=== PATIENT | female | born 1945 | race Caucasian/White ===

== ENCOUNTER 2025-07-18 04:38 | Emergency (ER) | payer OTHER ==
[2025-07-18 05:13] LABS: Absolute Lymphocytes (CBC) 3.1 K/uL (0.7-4.9); Hematocrit 40.6 % (36.0-45.0); Hemoglobin 13.9 g/dL (12.0-15.0); MCH 32.0 pg (27.0-35.0); MCHC 34.3 g/dL (32.0-36.0); MCV 93.3 fL (80-100); MPV 9.6 fL (7.6-11.3); Nucleated RBC Absolute Count 0.0 (0-0); Nucleated Red Blood Cells % 0.0 % (0-0); RBC Red Blood Cell Count 4.35 M/uL (3.86-4.86); White Blood Count 11.60 thou/uL (4.3-10.9)
[2025-07-18] MEDS ORDERED: IPRATROPIUM BROM 0.5MG/2.5ML ONE (05:34)
[2025-07-18] MEDS ORDERED: ALBUTEROL 2.5 MG/3 ML NEB SOL ONE ×2 (05:34→05:36)
[2025-07-18 05:40] LABS: Influenza A Ag Negative; Influenza B Ag Negative; SARS-CoV-2 Antigen Rapid Res Positive (Negative)
[2025-07-18 05:42] LABS: Anion Gap 9.9 mEq/L (5.0-15.0); BUN Blood Urea Nitrogen 11.0 mg/dL (7-18); Glucose Level 120.0 mg/dL (74-106); Potassium 3.9 mEq/L (3.5-5.1); Troponin High Sensitivity 8.6 pg/mL (<58.9)
--- NOTE | 2025-07-18 06:17 | ER ---
Nurse's Notes [facility] Name: Mariluz Villalta Age: 80 yrs Sex: Female : 1945 Arrival Date: 07/18/2025 Time: 04:38 Bed 6 Private MD: Diagnosis: COVID-19, viral illness Presentation: 07/18 04:52 Chief complaint: Patient states: PER FAMILY PT HAS BEEN C/O OF SOB, STUFFY NOSE AND HAS br2 HAD A PROD COUGH...PT DENIES PAIN. Coronavirus screen: Client denies travel out of the [place] in the last 14 days. Ebola Screen: Patient denies exposure to infectious person. Initial Sepsis Screen: Does the patient meet any 2 criteria? No. Patient's initial sepsis screen is negative. Does the patient have a suspected source of infection? No. Patient's initial sepsis screen is negative. Risk Assessment: Do you want to hurt yourself or someone else? Patient reports no desire to harm self or others. Onset of symptoms is unknown. 04:52 Method Of Arrival: Wheelchair br2 04:52 Acuity: JILLIAN 3 br2 Triage Assessment: 04:55 General: Appears in no apparent distress. uncomfortable, Behavior is cooperative, bm8 appropriate for age, anxious. Pain: Denies pain. EENT: Reports nasal congestion Family member states that pt has a chronic cough and post nasal drip.. Neuro: No deficits noted. Level of Consciousness is awake, alert, obeys commands, Oriented to person, place, time, situation, Appropriate for age. Cardiovascular: Denies chest pain, Heart tones S1 S2 present Capillary refill < 3 seconds in bilateral fingers Patient's skin is warm and dry. Edema is 1+ to left ankle, left foot, left toes, right ankle, right foot and right toes Rhythm is sinus arrythmia. Respiratory: Reports shortness of breath at rest air hunger Airway is patent Respiratory effort is even, unlabored, Respiratory pattern is symmetrical, hyperventilation Breath sounds are diminished bilaterally. Onset: The symptoms/episode began/occurred gradually, the patient has mild shortness of breath. GI: No signs and/or symptoms were reported involving the gastrointestinal system. : No signs and/or symptoms were reported regarding the genitourinary system. Derm: No signs and/or symptoms reported regarding the dermatologic system. Musculoskeletal: No signs and/or symptoms reported regarding the musculoskeletal system. Historical: - Allergies: 04:55 No Known Allergies; br2 - PMHx: 04:55 Diabetes mellitus; Hypertensive disorder; Hypercholesterolemia; br2 - PSHx: 04:55 MASTECTOMY RIGHT -BREAST CA; br2 - Immunization history:: Adult Immunizations up to date. - Infectious Disease History:: Denies. - Social history:: Smoking status: Patient denies any tobacco usage or history of. Patient/guardian denies using alcohol, street drugs. Screenin:16 [facility] ED Fall Risk Assessment (Adult) History of falling in the last 3 months, bm8 including since admission No falls in past 3 months (0 pts) Confusion or Disorientation No (0 pts) Intoxicated or Sedated No (0 pts) Impaired Gait Yes (1 pt) Mobility Assist Device Used No (0 pt) Altered Elimination No (0 pt) Score/Fall Risk Level 0 - 2 = Low Risk Oriented to surroundings, Maintained a safe environment, Educated pt \T\ family on fall prevention, incl call for assistance when getting out of bed, Assessed \T\ reinforced patient's understanding of fall precautions, Hourly rounding (assess needs \T\ fall precautionary measures) done, Used ambulatory aids as needed (educated on \T\ assisted with), Used gait belt as appropriate. Abuse screen: Denies threats or abuse. Nutritional screening: No deficits noted. Tuberculosis screening: No symptoms or risk factors identified. Assessment: 06:07 Reassessment: Patient appears in no apparent distress at this time. Patient and/or zm family updated on plan of care and expected duration. Pain level reassessed. Patient is alert, oriented x 3, equal unlabored respirations, skin warm/dry/pink. Patient states feeling better. Patient states symptoms have improved. General: Appears in no apparent distress. comfortable, Behavior is calm, cooperative, appropriate for age. Pain: Denies pain. Neuro: No deficits noted. Level of Consciousness is awake, alert, obeys commands, Oriented to person, place, time, situation. Cardiovascular: No deficits noted. Denies chest pain, Capillary refill < 3 seconds in bilateral fingers. Respiratory: Airway is patent Respiratory effort is even, labored, Respiratory pattern is regular, symmetrical, Breath sounds are clear bilaterally. Vital Signs: 04:52 BP 135 / 78; Pulse 79; Resp 24; Temp 98.6; Pulse Ox 97% on R/A; Weight 108.86 kg; br2 Height 5 ft. 9 in. ; Pain 0/10; 05:11 Pulse Ox 88% on R/A; zm 05:15 Pulse Ox 97% on 2 lpm NC; zm 06:05 BP 126 / 72; Pulse 82; Resp 18; Temp 98.3; Pulse Ox 94% on R/A; zm 04:52 Body Mass Index 35.44 (108.86 kg, 175.26 cm) br2 04:52 Pain Scale: Adult br2 Erick Coma Score: 06:10 Eye Response: spontaneous(4). Motor Response: obeys commands(6). Verbal Response: zm oriented(5). Total: 15. ED Course: 04:39 Patient arrived in ED. [email or web address] 04:55 Triage completed. br2 04:55 Arm band placed on right wrist. 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 Pulse ox on. NIBP on. hm5 04:56 EKG done, by ED staff, reviewed by Tr Brooks MD. hm5 04:57 Inserted saline lock: 20 gauge in left wrist, using aseptic technique. Blood collected. zm Flushed with 10 mL NS. 05:00 No provider procedures requiring assistance completed. bm8 05:00 Initial lab(s) drawn, by ED staff, sent to lab. First set of blood cultures drawn COVID bm8 swab sent to lab. Flu and/or RSV swab sent to lab. 05:02 Ramon Goodrich, RN is Primary Nurse. bm8 05:04 Tr Brooks MD is Attending Physician. kmf 05:13 Client placed on continuous cardiac and pulse oximetry monitoring. NIBP monitoring zm applied. 05:13 Oxygen administration via nasal cannula \T\ 2L/min. zm 05:16 Patient has correct armband on for positive identification. Placed in gown. Bed in low bm8 position. Call light in reach. Side rails up X2. Adult w/ patient. Door closed. Warm blanket given. Pillow given. Verbal reassurance given. Head of bed elevated. 05:20 Basic Metabolic Panel Sent. zm 05:20 CBC with Diff Sent. zm 05:20 Troponin HS Sent. zm 05:20 COVID-19 Ag + Flu A+B Ag Sent. zm 06:17 Majano, A, MD is Referral Physician. sp3 06:18 XRAY Chest (1 view) In Process Unspecified. EDMS 06:20 Provided Education on: POST ER CARE. zm 06:20 IV discontinued, intact, bleeding controlled, No redness/swelling at site. Pressure zm dressing applied. Administered Medications: 05:41 Drug: DuoNeb Nebulize (3:1) (2.5 mg - 0.5 mg) 3 ml Nebulizer once Route: Nebulizer; zm 06:05 Follow up: Response: No adverse reaction zm Medication: 05:16 VIS not applicable for this client. bm8 Outcome: 06:17 Discharge ordered by MD. sp3 06:20 Discharged to home via wheelchair, with family, zm 06:20 Condition: stable 06:20 Discharge instructions given to patient, family, Instructed on discharge instructions, follow up and referral plans. no drinking with medication, medication usage, safety practices, Demonstrated understanding of instructions, follow-up care, medications, Prescriptions given X 2, 06:27 Patient left the ED. Signatures: Dispatcher [employer] EDOR Tr Brooks MD MD sp3 Hannah Soni [email or web address] Katherine Pineda, RN RN zm Amelia Lamb [facility] Ramon Goodrich, RN RN bm8 Ketty Wooten, RN RN br2 Rizwana Arellano, RN RN hm5
--- NOTE | 2025-07-18 06:17 | EDPHYS ---
Physician Documentation [facility] Name: Mariluz Villalta Age: 80 yrs Sex: Female : 1945 Arrival Date: 07/18/2025 Time: 04:38 Bed 6 Private MD: ED Physician Tr Brooks HPI: 07/18 05:34 This 80 yrs old Female presents to ER via Wheelchair with complaints of Shortness Of sp3 Breath, Cough, Congestion. 05:34 80-year-old female with history of diabetes, hypertension, dementia, seasonal sp3 allergies, presents to the ED with chief complaint cough, congestion and shortness of breath. Patient just moved from [place] to be with her daughter. Family also states that she is now starting to and some of this may be "panic". No fever, chest pain, back pain, nausea, vomiting, diarrhea, or any other signs or symptoms on ROS at this time. Patient does not have an established PCP here yet.. Historical: - Allergies: 04:55 No Known Allergies; br2 - PMHx: 04:55 Diabetes mellitus; Hypertensive disorder; Hypercholesterolemia; br2 - PSHx: 04:55 MASTECTOMY RIGHT -BREAST CA; br2 - Immunization history:: Adult Immunizations up to date. - Infectious Disease History:: Denies. - Social history:: Smoking status: Patient denies any tobacco usage or history of. Patient/guardian denies using alcohol, street drugs. ROS: 05:39 Constitutional: Negative for fever, chills, and weight loss, Eyes: Negative for injury, sp3 pain, redness, and discharge, ENT: Negative for injury, pain, and discharge, Neck: Negative for injury, pain, and swelling, Cardiovascular: Negative for chest pain, palpitations, and edema, Abdomen/GI: Negative for abdominal pain, nausea, vomiting, diarrhea, and constipation, Back: Negative for injury and pain, MS/Extremity: Negative for injury and deformity, Skin: Negative for injury, rash, and discoloration, Neuro: Negative for headache, weakness, numbness, tingling, and seizure, Psych: Negative for depression, anxiety, suicide ideation, homicidal ideation, and hallucinations, Allergy/Immunology: Negative for hives, rash, and allergies, Endocrine: Negative for neck swelling, polydipsia, polyuria, polyphagia, and marked weight changes, Hematologic/Lymphatic: Negative for swollen nodes, abnormal bleeding, and unusual bruising, 05:39 All other systems are negative, Exam: 05:39 Constitutional: This is a well developed, well nourished patient who is awake, alert, sp3 and in no acute distress. Head/Face: Normocephalic, atraumatic. Eyes: Pupils equal round and reactive to light, extra-ocular motions intact. Lids and lashes normal. Conjunctiva and sclera are non-icteric and not injected. Cornea within normal limits. Periorbital areas with no swelling, redness, or edema. Neck: Trachea midline, no thyromegaly or masses palpated, and no cervical lymphadenopathy. Supple, full range of motion without nuchal rigidity, or vertebral point tenderness. No Meningismus. Chest/axilla: Normal chest wall appearance and motion. Nontender with no deformity. No lesions are appreciated. Cardiovascular: Regular rate and rhythm with a normal S1 and S2. No gallops, murmurs, or rubs. Normal PMI, no JVD. No pulse deficits. Abdomen/GI: Soft, non-tender, with normal bowel sounds. No distension or tympany. No guarding or rebound. No evidence of tenderness throughout. Back: No spinal tenderness. No costovertebral tenderness. Full range of motion. Skin: Warm, dry with normal turgor. Normal color with no rashes, no lesions, and no evidence of cellulitis. 05:39 ECG was reviewed by the Attending Physician. EKG demonstrates normal sinus rhythm at 82 bpm with first-degree AV block with SD interval 208 ms, left bundle branch block nonspecific diffuse ST/T changes without evidence of acute ischemia. 05:39 Respiratory: Scattered wheezing cough. No respiratory distress. Pulse oxygenation 97% on room air. Breathing at 20 breaths/min., Vital Signs: 04:52 BP 135 / 78; Pulse 79; Resp 24; Temp 98.6; Pulse Ox 97% on R/A; Weight 108.86 kg; br2 Height 5 ft. 9 in. ; Pain 0/10; 05:11 Pulse Ox 88% on R/A; zm 05:15 Pulse Ox 97% on 2 lpm NC; zm 06:05 BP 126 / 72; Pulse 82; Resp 18; Temp 98.3; Pulse Ox 94% on R/A; zm 04:52 Body Mass Index 35.44 (108.86 kg, 175.26 cm) br2 04:52 Pain Scale: Adult br2 Mesick Coma Score: 06:10 Eye Response: spontaneous(4). Motor Response: obeys commands(6). Verbal Response: zm oriented(5). Total: 15. MDM: 05:16 Medical Screening Exam initiated sp3 05:41 Data reviewed: vital signs, nurses notes, lab test result(s), EKG, radiologic studies. sp3 ED course: 80-year-old female with PMH above now with cough and shortness of breath congestion. Differential diagnosis includes viral illness, COVID-19, influenza, bronchitis, pneumonia, to lesser degree ACS or other pathology. Workup will include viral swabs, chest x-ray, EKG and general labs. Vital signs are normal. COVID is positive and is likely the culprit of her symptoms. If remainder of her workup is negative, we will safely discharge her home on antiviral and PCP follow-up. Patient will be referred to Dr. Majano.. 07/18 05:00 Order name: Basic Metabolic Panel; Complete Time: 05:43 br2 07/18 05:00 Order name: CBC with Diff; Complete Time: 05:40 br2 07/18 05:00 Order name: Troponin HS; Complete Time: 05:43 br2 07/18 05:00 Order name: COVID-19 Ag + Flu A+B Ag; Complete Time: 05:43 br2 07/18 05:00 Order name: XRAY Chest (1 view) br2 07/18 05:00 Order name: EKG; Complete Time: 05:00 2 07/18 05:00 Order name: Cardiac monitoring; Complete Time: 05:02 2 07/18 05:00 Order name: EKG - Nurse/Tech; Complete Time: 05:02 br2 07/18 05:00 Order name: IV Saline Lock; Complete Time: 05:2 07/18 05:00 Order name: Labs collected and sent; Complete Time: 05:02 br2 07/18 05:00 Order name: O2 Per Protocol; Complete Time: 05:02 2 07/18 05:00 Order name: O2 Sat Monitoring; Complete Time: 05:02 br2 Administered Medications: 05:41 Drug: DuoNeb Nebulize (3:1) (2.5 mg - 0.5 mg) 3 ml Nebulizer once Route: Nebulizer; zm 06:05 Follow up: Response: No adverse reaction zm Disposition Summary: 07/18/25 06:17 Discharge Ordered Notes: Location: Home sp3 Condition: Stable sp3 Diagnosis - COVID-19, viral illness sp3 Followup: sp3 - With: Rita Majano MD - When: Upon discharge from the Emergency Department - Reason: Recheck today's complaints Discharge Instructions: - Discharge Summary Sheet sp3 - COVID-19 sp3 Forms: - Medication Reconciliation Form sp3 - Antibiotic Education sp3 - Prescription Opioid Use sp3 - Patient Portal Instructions sp3 - Leadership Thank You Letter sp3 Prescriptions: - Paxlovid 300 mg (150 mg x 2)-100 mg Oral Tablet, Dose Pack - take 1 dose pack ORAL route as directed on dose pack take TWO 150 mg tablets of sp3 nirmatrelvir with ONE 100 mg tablet of ritonavir twice daily for 5 days; 1 Blister; Refills: 0, Product Selection Permitted - Tessalon Perles 100 mg Oral Capsule - take 1 capsule ORAL route every 8 hours As needed; 15 capsule; Refills: 0, sp3 Product Selection Permitted Signatures: Dispatcher [employer] Tr Mccarty MD MD sp3 Katherine Pineda, RN RN zm Ketty Wooten RN RN br2
--- NOTE | 2025-07-18 07:36 | RAD REPORT ---
PROCEDURE: R CHEST 1 VIEW HISTORY: yspnea;SOB COMPARISON: None FINDINGS: The heart is seen to be enlarged.. Prominent main pulmonary artery. There is interstitial edema. The left lung base is underpenetrated. There is no alveolar consolidation, right effusion or pneumothorax. There are no acute bony or soft tissue abnormalities. There are left tendon anchor scre ws. IMPRESSION: 1. Interstitial edema. 2. No focal consolidation. Electronically signed by: Eugene Rios MD 07/18/2025 06:37 AM CDT Due to temporary technical issues with the [employer]ACS/[employer] reporting system, reports are being robin d by the in-house radiologist without review as a courtesy to ensure prompt reporting the interpreting radiologist is fully responsible for the content of the report. Transcribed Date/Time: 07/18/2025 7:36 AM
[2025-07-18 11:33] VITALS: BP 126/72; TEMP 98.3; O2SAT 94
== END 2025-07-18 06:27 | disposition home or self-care (01) ==
LOC: ER 04:38
DX: U07.1 COVID-19 (principal)
CPT/HCPCS: 93005; 85025; 80048; 36415; 84484; 71045; 99285; 87428; J7613 ×2; J7644